=== PATIENT | female | born 1940 | race Caucasian/White ===

== ENCOUNTER 2019-01-19 20:00 | Emergency (ER) | payer MEDICARE, BC ==
[~2019-01-19] VITALS: Ht 162.6 cm; Wt 62.3 kg
[2019-01-19 20:11] VITALS: BP 153/71; Ht 162.6 cm; Wt 62.3 kg
[2019-01-19] MEDS ORDERED: SYNTHROID50 MCG PO (20:12)
[2019-01-19] MEDS ORDERED: PAIN PILL (20:13)
[2019-01-19] MEDS ORDERED: [UNRECOGNIZED DRUG - REMARK] (20:13)
[2019-01-19] MEDS ORDERED: [UNRECOGNIZED DRUG - REMARK] (20:14)
== END 2019-01-19 21:27 | disposition home or self-care (01) ==
LOC: D.ER 20:00
DX: H11.31 Conjunctival hemorrhage, right eye (principal); F17.200 Nicotine dependence, unspecified, uncomplicated